=== PATIENT | male | born 1970 | race Caucasian/White ===

== ENCOUNTER 2019-07-07 23:51 | Emergency (ER) | payer OTHER ==
[~2019-07-07] VITALS: Ht 190.5 cm; Wt 106.6 kg
[2019-07-07] MEDS ORDERED: XELJANZ5 MG PO (23:56)
[2019-07-08 00:22] LABS: ABSOLUTE EOSINOPHILS 0.2 thou/uL (0.0-0.7); ABSOLUTE LYMPHOCYTES 1.8 thou/uL (0.8-5.3); ABSOLUTE MONOCYTES 0.5 thou/uL (0.0-1.2); ABSOLUTE NEUTROPHILS 4.3 thou/uL (1.6-8.1); BASOPHILS 0.6 %; EOSINOPHILS 2.7 %; HEMATOCRIT 43.2 % (42.0-52.0); HEMOGLOBIN 14.8 gm/dL (14.0-18.0); LYMPHOCYTES 25.7 %; MCH 28.7 pg (26.0-34.0); MCHC 34.2 g/dL (28.0-37.0); MCV 83.9 fL (80.0-100.0); MONOCYTES 7.7 %; MPV 8.3 fl. (7.2-11.1); NUCLEATED RBCS 0 /100WBC; PLATELET COUNT* 279 thou/uL (150-400); POLYS 63.3 %; RBC 5.15 mil/uL (4.50-6.00); RDW-CV 13.9 % (10.5-14.5); WBC 6.8 thou/uL (4.0-11.0)
[2019-07-08 00:30] LABS: CALCIUM 8.4 mg/dL (8.5-10.1); CREATININE 1.1 mg/dL (0.6-1.3); POTASSIUM 3.5 mmol/L (3.5-5.1)
[2019-07-08 00:31] LABS: APTT 28.2 Seconds (25.0-31.3); PROTIME 10.6 Seconds (9.20-11.50)
[2019-07-08 00:54] LABS: ALBUMIN 4.1 g/dL (3.4-5.0); CK-MB MASS 2.2 ng/mL (<0.5-3.6); MAGNESIUM 2.2 mg/dL (1.8-2.4); TOTAL BILIRUBIN 0.3 mg/dL (<0.1-1.0); TOTAL PROTEIN 7.8 g/dL (6.4-8.2)
[2019-07-08 01:12] VITALS: BP 122/78
--- NOTE | 2019-07-08 14:19 | EKG ---
[place] [address] ELECTROCARDIOGRAM REPORT Name: THADDEUSANDRIYKUSH [place] Room: [facility]#: [id number] Admission: 07/07/19 Attend Phys: Discharge: 07/08/19 Date of : 70 Report #: [id number] THIS REPORT FOR: //name// [facility] ED Test Date: 2019-07-07 Test Time: 23:55:10 Pat Name: KUSH TRAVIS Department: Room: Gender: M Practice Coordinator: [place] : 1970 Requested By: Onur Farrell Order Number: [id number] MD: Dougie Hendrix Measurements Intervals [place] Rate: 58 P: 56 [place]: 210 QRS: -9 QRSD: 105 T: 2 QT: 435 QTc: 428 Interpretive Statements Sinus rhythm Prolonged [place] interval RSR' in V1 or V2, right VCD or RVH No previous ECG available for comparison Electronically Signed On 07-08-2019 14:18:47 DIRECTOR PAID MEDIA by Dougie Hendrix [email or web address] <ELECTRONICALLY SIGNED> By: Dougie Hendrix MD, [facility] 07/08/19 1418 [id number] Dougie Hendrix MD, FACC /EPI
== END 2019-07-08 01:12 | disposition home or self-care (01) ==
LOC: M.ERS 23:51
PROVIDERS: Family Medicine
DX: R07.89 Other chest pain (principal)